=== PATIENT | male | born 1990 | race Caucasian/White ===

== ENCOUNTER 2017-05-07 21:30 | Emergency (ER) | payer OTHER ==
[2017-05-07] MEDS ORDERED: Lidocaine 1% 10 ML MDV INJECT ONE (21:40)
[2017-05-07] MEDS ORDERED: Lidocaine 1% with EPINEPHrine 1:100,000 10 ML MDV INJECT ONE (21:40)
[2017-05-07] MEDS ORDERED: Bacitracin Oint 1 GM U/D Packet TOP ONE (21:40)
[2017-05-07 21:45] VITALS: BP 123/78
--- NOTE | 2017-05-07 21:46 | EDM.PDOC ---
ED HPI GENERAL MEDICAL PROBLEM - General Chief Complaint: Laceration Stated Complaint: LACERATION RT INDEX Time Seen by Provider: 05/07/17 21:36 - History of Present Illness INITIAL COMMENTS - FREE TEXT/NARRATIVE: HISTORY AND PHYSICAL: History of present illness: The patient is a 26-year-old male with no stated medical problems who tells me he is up-to-date on his tetanus shot and presents with a laceration to the right hand near the knuckle of the index finger. Patient was working on his truck when he cut it. There was no direct blow to the area or crush injury. Patient has no complaints of bony pain and is able to flex and extend at the index finger and he was not to come in but his girlfriend is a nurse who thought it should be repaired. Patient has no other systemic complaints and no other injuries Review of systems: As per history of present illness and below otherwise all systems reviewed and negative. Past medical history: As per history of present illness and as reviewed below otherwise noncontributory. Surgical history: As per history of present illness and as reviewed below otherwise noncontributory. Social history: No reported history of drug or alcohol abuse. Family history: As per history of present illness and as reviewed below otherwise noncontributory. Physical exam: Abdominal: Well-developed well-nourished man who is nontoxic and vital signs are noted by me HEENT: Atraumatic, normocephalic, negative for conjunctival pallor or scleral icterus, mucous membranes moist, throat clear, neck supple, nontender, trachea midline. Lungs: Clear to auscultation, breath sounds equal bilaterally, chest nontender. Heart: S1S2, regular rate and rhythm no overt murmurs Abdomen: Soft, nondistended, nontender. NABS Pelvis: Deferred Genitourinary: Deferred. Rectal: Deferred. Extremities: Atraumatic with full range of motion of all extremities with the exception of the dorsal aspect of the right hand where there is a 1.5 cm laceration at the second MCP area. There is no soft tissue swelling or erythema there is no active bleeding. No foreign bodies are appreciated. Patient is able to extend against resistance at the index finger without deficits, the legs are , negative for cords or calf pain. Neurovascular unremarkable. Neuro: Awake, alert, oriented. Cranial nerves II through XII unremarkable. Cerebellum unremarkable. Motor and sensory unremarkable throughout. Exam nonfocal. Diagnostics: None Therapeutics: Wound care laceration repair Procedure note: After the wound was cleansed by nursing it was prepped and draped in sterile fashion and 1% lidocaine with epinephrine was infused in a local fashion. The wound was explored and no foreign bodies were appreciated. The skin edges were reapproximated using a total number of # 2 sutures of 5-0 nylon in a simple interrupted fashion. Patient tolerated the procedure well and bacitracin was applied as well as a gauze dressing. There were no complications. This procedure was performed by Janice Herrera nurse practitioner Impression: Hand laceration Definitive disposition and diagnosis as appropriate pending reevaluation and review of above. right hand Pain Score (Numeric/FACES): 2 - Related Data Allergies Allergy/AdvReac Type Severity Reaction Status Date / Time Penicillins Allergy Rash Verified 05/07/17 21:39 Home Meds: Home Meds . [No Known Home Meds] 05/07/17 [History] Social & Family History - Tobacco Use Smoking Status *Q: Never Smoker Second Hand Smoke Exposure: No - Alcohol Use Days Per Week of Alcohol Use: 2 Number of Drinks Per Day: 4 Total Drinks Per Week: 8 - Recreational Drug Use Recreational Drug Use: No ED ROS GENERAL - Review of Systems Review Of Systems: ROS reveals no pertinent complaints other than HPI. ED EXAM, SKIN/RASH Exam: See Below (See dictation) Course - Vital Signs Last Recorded V/S: Last Vital Signs Temp 36.9 C 05/07/17 21:30 Pulse 71 05/07/17 21:30 Resp 18 05/07/17 21:30 BP 123/78 05/07/17 21:30 Pulse Ox 97 05/07/17 21:30 - Orders/Labs/Meds Orders: Active Orders 24 hr Category Date Time Status Communication Order [RC] STAT Care 05/07/17 21:40 Active Meds: Medications Discontinued Medications Generic Name Dose Route Start Last Admin Trade Name Lupis PRN Reason Stop Dose Admin Bacitracin 1 dose 05/07/17 21:40 05/07/17 21:47 Bacitracin Oint 1 Gm TOP 05/07/17 21:41 1 dose ONETIME ONE Administration Lidocaine HCl 10 ml 05/07/17 21:40 05/07/17 21:57 Xylocaine 1% INJECT 05/07/17 21:41 Not Given ONETIME ONE Lidocaine/Epinephrine 10 ml 05/07/17 21:40 05/07/17 21:57 Xylocaine 1% With Epinephrine 1:100,000 INJECT 05/07/17 21:41 10 ml ONETIME ONE Administration Departure - Departure Time of Disposition: 22:02 Disposition: Home, Self-Care 01 Condition: Good Clinical Impression: Laceration of hand Qualifiers: Encounter type: initial encounter Foreign body presence: without foreign body Laterality: right Qualified Code(s): S61.411A - Laceration without foreign body of right hand, initial encounter - Discharge Information Referrals: PCP,None [Primary Care Provider] - Forms: ED Department Discharge Additional Instructions: The following information is given to patients seen in the emergency department who are being discharged to home. This information is to outline your options for follow-up care. We provide all patients seen in our emergency department with a follow-up referral. The need for follow-up, as well as the timing and circumstances, are variable depending upon the specifics of your emergency department visit. If you don't have a primary care physician on staff, we will provide you with a referral. We always advise you to contact your personal physician following an emergency department visit to inform them of the circumstance of the visit and for follow-up with them and/or the need for any referrals to a consulting specialist. The emergency department will also refer you to a specialist when appropriate. This referral assures that you have the opportunity for followup care with a specialist. All of these measure are taken in an effort to provide you with optimal care, which includes your followup. Under all circumstances we always encourage you to contact your private physician who remains a resource for coordinating your care. When calling for followup care, please make the office aware that this follow-up is from your recent emergency room visit. If for any reason you are refused follow-up, please contact the [facility] emergency department at and ask to speak to the emergency department charge nurse. [facility] Hand [facility] Professional [address] [address] Please keep a dressing placed in the ER on for the next 24 hours and then removing cleanse with mild soap and water. After you cleanse please place bacitracin on the wound. Please try to cleanse the area twice a day. After 2 days stop the ointment and allowed to dry. Leave it open to air as much as possible. Sutures should be removed in 7 days either here in the emergency department or with our hand specialist. Her provider in the clinic and also remove them. Return to ER as needed and as discussed. Please do not use Band- Aids on the area as this traps moisture - My Orders Last 24 Hours: My Active Orders 05/07/17 21:40 Communication Order [RC] STAT - Assessment/Plan Last 24 Hours: My Active Orders 05/07/17 21:40 Communication Order [RC] STAT
== END 2017-05-07 22:10 | disposition home or self-care (01) ==
LOC: MW.ED 21:30
DX: S61.411A Laceration without foreign body of right hand, initial encounter (principal); Z88.0 Allergy status to penicillin; W26.9XXA Contact with unspecified sharp object(s), initial encounter
CPT/HCPCS: 12001; 99282